=== PATIENT | male | born 2000 ===

== ENCOUNTER 2024-04-23 14:19 | Inpatient (IN) | payer BC, SELFPAY ==
--- OUTSIDE RECORDS SUMMARY | 2024-04-23 14:46 | XMS_ITS | Clinical Summary ---
Author Organization Luz Carrasco [facility] Address [address] [place] [address] Care Team Providers Care Dry Cleaning Machine Operator Helper Name Role Phone Unavailable Primary Care Provider Unavailabl e Allergies Active Allergy Reactions Criticality Noted Date Comments Amoxicillin GI Intolerance Encounters Date Type Department Care Team Description 04/22/2024 Lab Requisition [facility] Get Cho MD Encounter for screening, unspecified from Last 3 Months Immunizations Name Administration Dates Next Due Meningococcal Quadrivalent Vaccine (MENACTRA) Social History Tobacco Use Types Packs/Day Years Used Date Smoking Tobacco: Never Assessed Sex and Gender Information Value Date Recorded Sex Assigned at Not on file Legal Sex Male 7:35 PM EST Gender Identity Not on file Sexual Orientation Not on file Last Filed Vital Signs Vital Sign Reading Time Taken Comments Blood Pressure - - Pulse - - Temperature - - Respiratory Rate - - Oxygen Saturation - - Inhaled Oxygen Concentration - - Weight 159 kg (350 lb 11.7 oz) 11/27/2020 9:12 A M EDT Height 172.7 cm (5' 8 ) 11/27/2020 9:12 AM EDT Body Mass Index 53.33 11/27/2020 9:12 AM EDT Plan of Treatment Health Maintenance Due Date Last Done Comments Blood Pressure 2000 Depression Screening 2004 Hepatitis C Screening 02/12/2018 COVID-19 Vaccine (1 - 2023-2 5 season) 2023 Influenza Vaccine (#1) 2023 DTaP,Tdap,and Td Vaccines (2 - Td or Tdap) 06/11/2032 06/11/2022 Meningococcal Vaccines Completed 09/18/2016 Pneumococcal Vaccine: Pediat rics (0 to 5 Years) and At-Risk Patients (6 to 64 Years) Aged Out No longer eligi ble based on patient's age to complete this topic
--- OUTSIDE RECORDS SUMMARY | 2024-04-23 14:46 | XMS_ITS | Encounter Summary ---
Author Organization Luz Carrasco [facility] Address [address] [place] [address] Care Team Providers Care Microfilm Machine Operator Name Role Phone Unavailable Primary Care Provider Unavailabl e Encounter Details Date Type Department Care Team (Late st Contact Info) Description 04/22/2024 Lab Requisition [facility] Get Cho MD [address] [place] [address] Encounter for screening, unspecified Social History Tobacco Use Types Packs/Day Years Used Date Smoking Tobacco: Never Assessed Sex and Gender Information Value Date Recorded Sex Assigned at Not on file Legal Sex Male 7:35 PM EST Gender Identity Not on file Sexual Orientation Not on file documented as of this encounter Plan of Treatment Pending Results Name Type Priority Associated Diagnoses Date /Time Culture, Aerobic, Urine Microbiology STAT Encounter for screening, unspecified 04/22/2024 9:26 AM EST documented as of this encounter Visit Diagnoses Diagnosis Encounter for screening, unspecified documented in this encounter
--- OUTSIDE RECORDS SUMMARY | 2024-04-23 14:46 | XMS_ITS | Encounter Summary ---
Author Organization Luz Carrasco [facility] Address [address] [id number] Care Team Providers Care Swaging Machine Adjuster Name Role Phone Unavailable Primary Care Provider Unavailabl e Encounter Details Date Type Department Care Team (Late st Contact Info) Description 06/30/2023 Lab Requisition [facility] Orders Jose Alejandro Lea MD [address] [place] [address] Encounter for screening, unspecified Social History Tobacco Use Types Packs/Day Years Used Date Smoking Tobacco: Never Assessed Sex and Gender Information Value Date Recorded Sex Assigned at Not on file Legal Sex Male 7:35 PM EST Gender Identity Not on file Sexual Orientation Not on file documented as of this encounter Plan of Treatment Not on file documented as of this encounter Procedures Procedure Name Priority Date/Time Associated Diagnosis Comments HEMOGLOBIN A1C Routine 06/30/2023 11:03 AM EDT Encounter for screening, unspecified HEPATITIS B CORE ANTIBODIES (IGG, IGM) Routine 06/30/2023 11:02 AM EDT Encounter for screening, unspecified TREPONEMA PALLIDUM (SYPHILIS) ANTIBODY, IGG & IGM, REFLEX TO RPR Routine 06/30/2023 11:02 AM EDT Encounter for screening, unspecified HEPATITIS B SURFACE ANTIBODY Routine 06/30/2023 11:02 AM EDT Encounter for screening, unspecified HEPATITIS B SURFACE ANTIGEN Routine 06/30/2023 11:02 AM EDT Encounter for screening, unspecified LIPID PANEL Routine 06/30/2023 11:02 AM EDT Encounter for screening, unspecified BASIC METABOLIC PANEL Routine 06/30/2023 11:02 AM EDT Encounter for screening, unspecified documented in this encounter Results * (ABNORMAL) Hemoglobin A1C (06/30/2023 11:03 AM EDT) Hemoglobin A1C <4.1(L) 4.6 - 5.6 % 06/30/2023 7:44 PM EDT [facility] Comment: 4.6 to 5.6% ?Normal 5.7 to 6.4% ?Pre-diabetes, increased risk for diabetes >= 6.5% ?Diabetes mellitus Estimated Average Glucose <71 mg/dL 06/30/2023 7:44 PM EDT [facility] Blood PERIPHERAL NERVOUS SYSTEM STRUCTURE / Unknown 06/30/2023 11:03 AM EDT 06/30/2023 2:12 PM EDT us Jose Alejandro Lea MD LAB BLOOD ORDERABLES Final Re sult Performing Organization Address [facility]/ZIP Co de Phone Number [facility] [address] [place] [address], [place] [phone] * Treponema Pallidum (Syphilis) Antibody, IgG & IgM, Reflex RPR (06/30/2023 11:02 AM EDT) Treponema pallidum Antibody Non-Reacti ve Non-Reacti ve 06/30/2023 3:38 PM EDT [facility] Blood PERIPHERAL NERVOUS SYSTEM STRUCTURE / Unknown 06/30/2023 11:02 AM EDT 06/30/2023 2:12 PM EDT us Jose Alejandro Lea MD LAB BLOOD ORDERABLES Final Re sult Performing Organization Address City/[facility]/ZIP Co de Phone Number [facility] [address] [place] [address], [place] [phone] * (ABNORMAL) Lipid Panel (06/30/2023 11:02 AM EDT) [facility] Signature Cholesterol 122 <200 mg/dL [address] 06/30/2023 3:38 PM EDT [facility] Triglycerides 49 <150 mg/dL [address] 06/30/2023 3:38 PM EDT [facility] HDL Cholesterol 37(L) >40 mg/dL [address] 06/30/2023 3:38 PM EDT [facility] LDL Cholesterol 75 <130 mg/dL [address] 06/30/2023 3:38 PM EDT [facility] Comment: ?LDL-C Treatment Targets ? LDL-C mg/dL ?? High Risk (20%) ? <100 optional for very high risk ?? (optional <70) ? Mod Risk (2 high factors <20%) ??<130 optional for very high risk ?? (optional <100) ?? Low Risk (0-1 Risk factor) ?<160 Non-HDL Cholesterol 85 <160 mg/dL [address] 06/30/2023 3:38 PM EDT [facility] Comment: ? NON-HDL-c Treatment Targets ?Non-HDL C, mg/dL ? High Risk (20%) ?<130 ??Optional for very high risk (optional <100) ? Mod Risk (2 high factors <20%) ??<160 ??Optional for very high risk (optional <130) ? Low Risk (0-1 Risk Factor) ?<190 ?? NON-HDL Chol= Total Cholesterol-HDL Chol ??goal <160 VLDL Cholesterol 10 8 - 71 mg/dL [address] 06/30/2023 3:38 PM EDT [facility] Ratio Chol/HDL 3.3 0.0 - 5.[address] 06/30/2023 3:38 PM EDT [facility] Comment: ?Risk Ratio Estimate ? 1/2 ?? Avg. ?2X ? 3X ? Male ?3.4 ?5.0 ?9.6 ?23.4 Female ?3.4 ?4.4 ?7.1 ?11.0 Blood PERIPHERAL NERVOUS SYSTEM STRUCTURE / Unknown 06/30/2023 11:02 AM EDT 06/30/2023 2:12 PM EDT Jose Alejandro Lea MD LAB BLOOD ORDERABLES Final Re sult Performing Organization Address [facility] de Phone Number [facility] [address] [place] [address], * Hepatitis B Surface Antigen (06/30/2023 11:02 AM EDT) Hep B Valentin Ag Negative Negative 06/30/2023 3:38 PM EDT [facility] Blood PERIPHERAL NERVOUS SYSTEM STRUCTURE / Unknown 06/30/2023 11:02 AM EDT 06/30/2023 2:12 PM EDT Jose Alejandro Lea MD LAB BLOOD ORDERABLES Final Re sult Performing Organization Address [facility] de Phone Number [facility] [address] [place] [address], [place] [phone] * Hepatitis B Surface Antibody (06/30/2023 11:02 AM EDT) Hepatitis B Surface Antibody, Screen Negative Negative 06/30/2023 3:38 PM EDT [facility] Blood PERIPHERAL NERVOUS SYSTEM STRUCTURE / Unknown 06/30/2023 11:02 AM EDT 06/30/2023 2:12 PM EDT us Jose Alejandro Lea MD LAB BLOOD ORDERABLES Final Re sult Performing Organization Address City/[facility]/ZIP Co de Phone Number [facility] [address] [place] [address], [place] [phone] * Hepatitis B Core Antibodies (IgG, IgM) (06/30/2023 11:02 AM EDT) Hepatitis B Core Antibodies (IgG, IgM) Negative Negative 06/30/2023 3:38 PM EDT [facility] Blood PERIPHERAL NERVOUS SYSTEM STRUCTURE / Unknown 06/30/2023 11:02 AM EDT 06/30/2023 2:12 PM EDT us Jose Alejandro Lea MD LAB BLOOD ORDERABLES Final Re sult Performing Organization Address [facility] de Phone Number [facility] [address] [place] [address], [place] [phone] * Basic Metabolic Panel (06/30/2023 11:02 AM EDT) Pathologist [facility] Sodium 141 134 - 144 mmol/L [address] 06/30/2023 3:38 PM EDT [facility] Potassium 4.7 3.2 - 5.1 mmol/L [address] 06/30/2023 3:38 PM EDT [facility] Comment:Samples tested in se rum may exhibit a higher potassium value than those tested on plasma. Our current range is based on plasma testing. Chloride 107 97 - 109 mmol/L [address] 06/30/2023 3:38 PM EDT [facility] Total CO2/Bicarbonat e 25 20 - 32 mmol/L [facility] [address] 06/30/2023 3:38 PM EDT [facility] Anion Gap 9 5 - 15 mmol/L [address] 06/30/2023 3:38 PM EDT [facility] BUN 14 9 - 26 mg/dL [facility] [id number] 06/30/2023 3:38 PM EDT [facility] Creatinine, Blood 0.80 0.70 - 1.30 mg/dL [address] 06/30/2023 3:38 PM EDT [facility] Glucose, Blood 88 70 - 110 mg/dL [facility] [id number] 06/30/2023 3:38 PM EDT [facility] Calcium 9.3 8.5 - 10.5 mg/dL [facility] [id number] 06/30/2023 3:38 PM EDT [facility] Estimated GFR(CKD-EPI) >120 >=60 mL/min/BSA [facility] [id number] 06/30/2023 3:38 PM EDT [facility] Blood PERIPHERAL NERVOUS SYSTEM STRUCTURE / Unknown 06/30/2023 11:02 AM EDT 06/30/2023 2:12 PM EDT Jose Alejandro Lea MD LAB BLOOD ORDERABLES Final Re sult [facility] [address] [place] [address], documented in this encounter Visit Diagnoses Diagnosis Encounter for screening, unspecified documented in this encounter
--- OUTSIDE RECORDS SUMMARY | 2024-04-23 14:46 | XMS_ITS | Encounter Summary ---
Author Organization Luz Carrasco [facility] Address [address] [place] [address] Care Team Providers Care Metal Flow Coordinator Name Role Phone Unavailable Primary Care Provider Unavailabl e Encounter Details Date Type Department Care Team (Late st Contact Info) Description 02/28/2021 Lab [facility] Orders Jose Alejandro Lea MD [address] [place] [address] Acute upper respiratory infection, unspecified Social History Tobacco Use Types Packs/Day [...] Procedure Name Priority Date/Time Associated Diagnosis Comments CORONAVIRUS SARS-COV-2, MOLECULAR Routine 02/28/2021 4:48 PM EST Acute upper respiratory infection, unspecified documented in this encounter Results * (ABNORMAL) Coronavirus SARS-CoV-2, Molecular (02/28/2021 4:48 PM EST) Coronavirus SARS-CoV-2 Detected (AA) Not Detected ID Quantique [id number] 03/01/2021 1:50 PM EST [facility] Comment: A Detected result is considered a positive test result for COVID-19. This indicates that RNA from SARS-CoV-2 (formerly 2019-nCoV) was detected, and the patient is infected with the virus and presumed to be contagious. If requested by public health authority, specimen will be sent for additional testing. Test performed at: ?? [facility] ?? Department of Pathology and Laboratory Medicine ?? [address] [place] [address] ?? CLIA: [id number] Test performed using the [employer] COVID-19 Combo Amplitude high throughput real-time RT-PCR assay. This test has received Emergency Use Authorization approval from the U.S. FDA, and its performance characteristics have been verified by the Molecular Diagn[facility] Laboratory at [employer]. ??Laboratory test results should always be considered in the context of clinical observations and epidemiological data in making a final diagnosis and patient management decisions. Fact Sheet for Healthcare Providers: https://www.fda.gov/media/429455/download Fact Sheet for Patients: https://www.fda.gov/media/877378/download xOther NASOPHARYNGEAL SWAB / Unknown Collection / Unknown 02/28/2021 4:48 PM EST 03/01/2021 9:06 AM EST Jose Alejandro Lea MD BODY FLUIDS AND STOOLS ORDERA ARDEN Final Result Performing Organization Address City/State/[facility] Co de Phone Number [address] [place] [phone] documented in this encounter Visit Diagnoses Diagnosis Acute upper respiratory infection, unspecified documented in this encounter Additional Health Concerns Infection Onset Date Last Indicated Resolved Time COVID Suspect 02/28/2021 02/28/2021 03/01/2021 1:5 0 PM EST COVID Positive 02/28/2021 02/28/2021 03/30/2021 12 :25 AM EST documented as of this encounter
--- OUTSIDE RECORDS SUMMARY | 2024-04-23 14:46 | XMS_ITS | Clinical Summary ---
Author Organization [facility] Address [address] [place] [address] Care Team Providers Care Bracelet Maker Novelty Name Role Phone Rachel Owen MD Primary Care Provider [phone] Social History Tobacco Use Types Packs/Day Years Used Date Smoking Tobacco: Never Assessed Sex and Gender Information Value Date Recorded Sex Assigned at Not on file Legal Sex Male 10:49 PM EDT Gender Identity Not on file Sexual Orientation Not on file Plan of Treatment Not on file Insurance BCBS - OUT OF STATE Care Teams Bracelet Maker Novelty Relationship Specialty Start Date End Date Rachel Owen MD [facility] [address] [place] [phone] PCP - General 01/15/10
[2024-04-23 15:00] VITALS: BP 146/80; PULSE 88; RESP 16; TEMP 36.7; O2SAT 98
[2024-04-23 15:17] VITALS: BMI 56.7
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
--- NOTE | 2024-04-23 17:51 | P.CONHOSP_ITS ---
History of Present Illness Data of Consult Service Date: 04/23/24 Requesting physician: Teddy Hdez Primary Care Provider: Unknown Physician HPI Reason for consult: new psych admit HPI: 24-year-old male who was sent [facility] ED - for treatment of mood disorder. Patient seen and examined denies any past medical issues. Patient says he has some intermittent soft stools as well as constipation for many years, denies any abdominal pain or nausea vomiting or fever. He also had some frequency urinary washburn but that is also from years and he follows up with his PCP. He says he drinks alcohol last drink was 7 days ago, also he uses edible marijuana. Denies any new complaint of chest pain or shortness of breath or abdominal pain or fever or chills or nausea or vomiting Denies any cough Denies any weakness or numbness. Review of Systems Review of Systems: As above. Yes all other systems are reviewed and are negative PMFSH Social History Household Members: Family Housing: House Do you presently have visiting nurse or other home services: No Patient Tobacco Use Status: Never used Tobacco Use of substances other than those prescribed or required for medical reasons: Yes Substance Use Type: Marijuana Substance Use Type Other:: edibles Substance Use Frequency: Daily Last Used Substance: Just Prior to Admission Currently Displaying Signs/Symptoms of Drug Intoxication Withdrawal: No Any prior treatment program specific to substance use: No Have you been hit, kicked, punched, or otherwise hurt by someone within the past year? If so, by whom?: No Do you feel safe in your current relationship?: No Current Relationship Is there a partner from a previous relationship who is making you feel unsafe now?: No Are you made to feel afraid or neglected: No Advance Directives: No Advance Directives Information Provided: Yes Do you have a plan to hurt others: No Plan Recently lost weight without trying: Yes How much weight loss: 34pounds or more Eating poorly because of decreased appetite: Yes Nutrition screen score: 7 Nutrition Risks: No Nutritional Risk Poor oral hygiene: No Meds Allergies Allergy/AdvReac Type Severity Reaction Status Date / Time Penicillins Allergy Nausea and Verified 04/23/24 15:18 Vomiting Active Medications: Current Medications Acetaminophen (Acetaminophen 325 Mg Tablet) 650 mg PO Q6H PRN PRN Reason: Headache/Pain, Scale 1-10 Al Hydroxide/Mg Hydroxide (Magnesium Hydrox/Alum Hydrox 30 Ml Oral.Susp) 30 ml PO Q6H PRN PRN Reason: Heartburn/Nausea Hydroxyzine HCl (Hydroxyzine Hcl 25 Mg Tablet) 25 mg PO Q6H PRN PRN Reason: mild anxiety Magnesium Hydroxide (Milk Of Magnesia 30 Ml Oral.Susp) 30 ml PO DAILY PRN PRN Reason: Constipation Nicotine Polacrilex (Nicotine Polacrilex 2 Mg Gum) 4 mg BUCCAL Q2H PRN PRN Reason: Nicotine Cravings Trazodone HCl (Trazodone Hcl 50 Mg Tablet) 50 mg PO BEDTIME MRX1 PRN PRN Reason: Insomnia Home Medications ?Medication ?Instructions ?Recorded ?Confirmed ?Last Taken ?Type No Known Home Meds 04/23/24 04/23/24 Unknown History Physical Exam Vital Signs and Narrative: Vital Signs: Last Vital Signs Temp 98.0 F 04/23/24 15:00 Pulse 88 04/23/24 15:00 Resp 16 04/23/24 15:00 BP 146/80 H 04/23/24 15:00 Pulse Ox 98 04/23/24 15:00 O2 Del Method Room Air 04/23/24 15:00 BMI result Body Mass Index 56.7 Appearance: Alert.? Oriented X3.? Obese. Eyes: Pupils equal, round and reactive to light.? Sclera nonicteric.? ENT: Pharynx normal.? Moist mucous membranes. cvs: rrr, [id number] , no murmur res: clear to auscultation ,no rhonchii or wheezing abd: no rebound or guarding ,nt, bs present. ext pulses present , no cyanosis . neuro: axo3 , nonfocal. Assessment and Plan (1) Loose stools: Status: Acute Plan 24-year-old male who was sent [facility] ED - for treatment of mood disorder. Mood disorder treatment as per psych team Intermittent constipation/soft stool , urinary frequency intermittent from many years-patient follows up with his PCP. Further management outpatient with PCP. Patient was strongly advised to abstain from alcohol. Morbid obesity: Patient is saying that he is already trying to lose weight, encouraged him for that. Will sign off, thank you for letting us participate inpatient care.
[2024-04-23 19:23] LABS: Alanine Aminotransferase 46 U/L (0-40); Albumin Level 4.6 g/dL (3.5-5.0); Alkaline Phosphatase 101 U/L (39-117); Anion Gap 13 (12-20); Aspartate Amino Transferase 34 U/L (5-37); Bilirubin Total 0.5 mg/dL (0.0-1.0); Blood Urea Nitrogen 15 mg/dL (9-16); Calcium 9.8 mg/dL (8.4-10.2); Carbon Dioxide 24 mmol/L (22-29); Chloride 109 mmol/L (96-108); Creatinine Clr Calc Pharmacy 206.9; Estimated Glomerular Filt Rate > 60; Glucose Random 85 mg/dL (60-115); Potassium 4.2 mmol/L (3.3-5.1); Sodium 142 mmol/L (135-145); Total Protein 7.8 g/dL (6.5-8.0)
[2024-04-23 20:00] VITALS: BP 142/70; PULSE 60; RESP 18; TEMP 36.3; O2SAT 99
[2024-04-23] MEDS: hydrOXYzine HCL 25 MG TABLET PO (22:39)
[2024-04-23] MEDS: traZODone HCL 50 MG TABLET PO (22:39)
[2024-04-24 07:30] VITALS: BP 130/74; PULSE 53; RESP 16; TEMP 36.4; O2SAT 98
[2024-04-24 08:56] LABS: Cholesterol 136 mg/dL (<200); HDL Cholesterol 41 mg/dL (>40); LDL Cholesterol Calculated 81 mg/dL (<100); Triglycerides 73 mg/dL (<150)
--- NOTE | 2024-04-24 10:39 | HO.PSYCHPN ---
Subjective Subjective Date of Service: 04/24/24 Reason For Visit: Crisis Review of Systems Review of Systems As above. Yes all other systems are reviewed and are negative Diagnostics Vital Signs (24Hr): Vital Signs - 24 hr 04/23/24 15:00 04/23/24 20:00 04/24/24 07:30 Temperature 98.0 F 97.3 F 97.6 F Pulse Rate 88 60 53 Respiratory Rate 16 18 16 Blood Pressure 146/80 H 142/70 H 130/74 Pulse Oximetry 98 99 98 Oxygen Delivery Method Room Air Room Air Room Air BMI result Body Mass Index 56.7 Labs 04/23/24 18:42 Labs: Laboratory Results - last 48 hr 04/23/24 04/24/24 18:42 07:53 Sodium 142 Potassium 4.2 Chloride 109 H Carbon Dioxide 24 Anion Gap 13 BUN 15 Creatinine 0.82 Estim Creat Clear Calc 206.9 Estimated GFR > 60 Random Glucose 85 Calcium 9.8 Total Bilirubin 0.5 AST 34 ALT 46 H Alkaline Phosphatase 101 Total Protein 7.8 Albumin 4.6 Triglycerides 73 Cholesterol 136 LDL Cholesterol, Calc 81 HDL Cholesterol 41 Medications Medications Current Medications Acetaminophen (Acetaminophen 325 Mg Tablet) 650 mg PO Q6H PRN PRN Reason: Headache/Pain, Scale 1-10 Al Hydroxide/Mg Hydroxide (Magnesium Hydrox/Alum Hydrox 30 Ml Oral.Susp) 30 ml PO Q6H PRN PRN Reason: Heartburn/Nausea Hydroxyzine HCl (Hydroxyzine Hcl 25 Mg Tablet) 25 mg PO Q6H PRN PRN Reason: mild anxiety Last Admin: 04/23/24 22:39 Dose: 25 mg Magnesium Hydroxide (Milk Of Magnesia 30 Ml Oral.Susp) 30 ml PO DAILY PRN PRN Reason: Constipation Nicotine Polacrilex (Nicotine Polacrilex 2 Mg Gum) 4 mg BUCCAL Q2H PRN PRN Reason: Nicotine Cravings Trazodone HCl (Trazodone Hcl 50 Mg Tablet) 50 mg PO BEDTIME MRX1 PRN PRN Reason: Insomnia Last Admin: 04/23/24 22:39 Dose: 50 mg Allergies Allergies Allergy/AdvReac Type Severity Reaction Status Date / Time Penicillins Allergy Nausea and Verified 04/23/24 15:18 Vomiting Assessment & Plan Assessment & Plan (1) Loose stools: Status: Acute Code(s): R19.5 - Other fecal abnormalities Plan 24[facility]. Mood disorder treatment as per psych team Intermittent constipation/soft stool , urinary frequency intermittent from many years-patient follows up with his PCP. Further management outpatient with PCP. Patient was strongly advised to abstain from alcohol. Morbid obesity: Patient is saying that he is already trying to lose weight, encouraged him for that. Will sign off, thank you for letting us participate inpatient care. Time Spent With Patient Time: Total time managing care of this patient today ____ minutes.
--- NOTE | 2024-04-24 10:39 | HO.PSYADMNOT ---
HPI Date of Service: 04/24/24 Chief Complaint: Crisis Sources of Information: patient interviewed, chart reviewed and crisis/core team assessment reviewed HPI Narrative: 24 yo young man, lives in [facility]. He lives with his parents and brother. He works at a restaurant. Patient with a reported diagnosis of ASD/Asperger's disorder. He was transferred from [facility] in [place] due to SI. Patient reports he has been increasingly depressed over the last 8 or so months after the break up with his ex-girlfriend. He reports a 2.5 year relationship with her. She lived in [place] and their relationship was remote. Patient reports increased depression and increased alcohol use. He reports drinking 5-6 nips everyday (BAL at [facility] <10) and using edibles because of decreased appetite. He reports a weight loss of 40 lbs (Patient reports being around 400 lbs ad now being 360 lbs). Decreased motivation. 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 Helplessness and hopelessness. He reports he sent a message to a friend saying grazynae and the friend alerted the police who came to his house. He was considering OD on Ibuprofen. He told his mother and he says he was challenging her to stop him if she could (mom's mobility is limited due to her illness.) In addition to the break up patient reports stressors including his mother having Lupus, being on dialysis and having cancer. He says they were told she has 3 months to live several months ago. He has a strained relationship with his father. He also uses excessive amounts of edible MJ to help his anxiety and to help his appetite. He denies withdrawals from ETOH Denies SI now. Denies panic Denies hallucinations. Past Psychiatric History: Inpatient hospitalization age 10 in 4th grade. Evasive about details. Medical Evaluation Reviewed: Yes [facility] Family History: Says his father may be depressed. (mentioned to crisis team in [place] father may have bipolar) Social History: Lives with his family in [place]. 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 Single. No children. Grew up in [place]. Attended a special education middle and high school program due to learning difficulties. Substance History: Alcohol and MJ Diagnostics Vital Signs (24Hr): Vital Signs - 24 hr 04/23/24 15:00 04/23/24 20:00 04/24/24 07:30 Temperature 98.0 F 97.3 F 97.6 F Pulse Rate 88 60 53 Respiratory Rate 16 18 16 Blood Pressure 146/80 H 142/70 H 130/74 Pulse Oximetry 98 99 98 Oxygen Delivery Method Room Air Room Air Room Air BMI result Body Mass Index 56.7 Labs 04/23/24 18:42 Labs: Laboratory Results - last 48 hr 04/23/24 04/24/24 18:42 07:53 Sodium 142 Potassium 4.2 Chloride 109 H Carbon Dioxide 24 Anion Gap 13 BUN 15 Creatinine 0.82 Estim Creat Clear Calc 206.9 Estimated GFR > 60 Random Glucose 85 Calcium 9.8 Total Bilirubin 0.5 AST 34 ALT 46 H Alkaline Phosphatase 101 Total Protein 7.8 Albumin 4.6 Triglycerides 73 Cholesterol 136 LDL Cholesterol, Calc 81 HDL Cholesterol 41 Meds/Allergies Meds Home Medications ?Medication ?Instructions ?Recorded ?Confirmed ?Type No Known Home Meds 04/23/24 04/23/24 History Allergies Allergies Allergy/AdvReac Type Severity Reaction Status Date / Time Penicillins Allergy Nausea and Verified 04/23/24 15:18 Vomiting Mental Status Exam Mental Status Exam Narrative: General appearance: casually appropriate dress. Obese Unkept.? Eye contact: WNL. Musculoskeletal: Normal muscle strength/tone, Normal gait and station, No abnormal involuntary movements like tremors, EPS or dyskinesia. No psychomotor agitation or retardation. Normal posture.??? Manner/behavior: Somewhat evasive Speech:? Fluent, with normal rate, tone and volume. Language: No receptive or expressive language impairment? Mood: depressed Affect: constricted range, sometimes incongruent and jocular.? Thought process/associations: Linear with no flight of ideas or loose associations.?? Thought content:?No delusions or paranoia.?? Hallucinations: No auditory, visual or other hallucinations No?flashbacks, nightmares or dissociation? ? Suicidality/self-destructive behavior: none at this time, future oriented, hopeful.? ? Homicidally/violence: none.? Reliability: fair.? ? Judgment: fair.? ? Insight: fair Cognition: Alert and oriented to time, place and person. Attention, concentration and fund of knowledge are normal.? Impulse control and emotional regulation: preserved. Intelligence estimate: average.? Assessment & Plan Assessment & Plan (1) Depressive disorder, not elsewhere classified: Status: Acute Code(s): F32.89 - Other specified depressive episodes (2) Asperger disorder: Status: Acute Code(s): F84.5 - Asperger's syndrome (3) Alcohol use disorder: Status: Acute Code(s): F10.90 - Alcohol use, unspecified, uncomplicated (4) Cannabis use disorder: Status: Acute Code(s): F12.90 - Cannabis use, unspecified, uncomplicated Plan 24 yo male transferred from [facility] with increased depression and SI with thoughts of ODing on medications. PLAN: - Admit to inpatient psychiatry - CV - Collateral information from family and providers. - Milieu treatment and group therapy. - Medications: Start Lexapro 10 mg daily. - Social work evaluation. - Disposition planning. Patient educated on: diagnosis and medication risk/benefits Reason for continued inpatient stay Substantial Risk for: harm to self and rapid decompensation Statement Statement: I have reviewed the history and physical and performed a pertinent examination on my patient. No changes have occurred unless specified. If the History and Physical was not performed prior to admission, the Hospitalist's service will be consulted for completing the admission physical. Time Spent With Patient Time: Total time managing care of this patient today ____ minutes.
--- NOTE | 2024-04-24 16:15 | PC.NURSE ---
Addendum entered by France Estrada RN 04/24/24 16:35: Dr. Romero notified. EKG ordered, Ativan 2 mg ordered. Placed on CIWA. Patient vomited x1, reports diarrhea persists, c/o stomach discomfort. Fire Engine Pump Operator notified of EKG order. Patient in room, resting in bed. Original Note: Patient reporting feeling lightheaded and nauseated. Sat on floor in hallway stating I have never felt like this before . BP 113/79 HR 95. Diaphoretic. Reports tingling in both hands.
--- NOTE | 2024-04-24 16:24 | ECG_ITS ---
Test Reason : chest pressure Blood Pressure : */* mmHG Vent. Rate : 85 BPM Atrial Rate : 85 BPM P-R Int : 152 ms QRS Dur : 84 ms QT Int : 354 ms P-R-T Axes : 49 -12 25 degrees QTcB Int : 421 ms Normal sinus rhythm Minimal voltage criteria for LVH, may be normal variant ( R in aVL ) Borderline ECG No previous ECGs available Referred By: Yasmany Romero Electronically Signed By: ETTA ROSARIO
[2024-04-24] MEDS: Ondansetron ODT 4 MG TAB.RAPDIS TRANSLINGU (16:45)
[2024-04-24] MEDS: LORazepam 1 MG TABLET 2 MG PO (16:45)
[2024-04-24 20:00] VITALS: BP 136/87; PULSE 106; RESP 16; TEMP 38.7; O2SAT 94
[2024-04-24] MEDS: Acetaminophen 325 MG TABLET 650 MG PO (20:11)
[2024-04-24] MEDS: LORazepam 1 MG TABLET PO (20:11)
[2024-04-24 21:20] VITALS: TEMP 39.2
--- NOTE | 2024-04-24 21:37 | PC.NURSE ---
Jaci Campo informed of patient physical status.
[2024-04-24 22:02] VITALS: TEMP 37.4
[2024-04-24] MEDS: Loperamide HCl 2 MG CAPSULE PO (22:08)
[2024-04-24 22:28] LABS: Hematocrit 46.2 % (42.0-52.0); Mean Corpuscular HGB Conc 32.5 g/dl (31.0-36.0); Mean Corpuscular Hemoglobin 27.2 pg (27.0-33.0); Mean Corpuscular Volume 83.7 fL (80.0-98.0); Mean Platelet Volume 9.9 fL (9.4-12.4); Platelet Count 223 X10*3/uL (160-400); Red Blood Count 5.52 X10*6/uL (4.60-5.80); Red Cell Distribution Width 12.1 % (11.0-16.0); White Blood Count 11.7 X10*3/uL (4.8-10.8)
--- NOTE | 2024-04-24 22:31 | P.CONHOSP_ITS ---
History of Present Illness Data of Consult Service Date: 04/24/24 Requesting physician: Teddy Hdez Primary Care Provider: Unknown Physician HPI Reason for consult: fever, diarrhea, vomiting Patient is a 24-year-old male on adult psych M3, consult placed for fever, diarrhea, nausea and vomiting. His symptoms all began today. He reports his diarrhea significantly worse than baseline and denies any recent antibiotics. There is no blood in the vomit or diarrhea. The diarrhea is watery and brown. Nausea is better with Zofran. He describes generalized abdominal cramping and tenderness. He denies any upper respiratory symptoms including congestion, runny nose, cough or headache. He does have a history of alcohol use and reports that he was drinking a few nips daily and has not had anything to drink for 1 week. He denies any history of alcohol withdrawal or seizures. Fever was up to 102.5, now 99.3 after Tylenol. CIWA scores have been up to 10 however can be difficult with viral illness as symptoms may coincide. Review of Systems 2 Constitutional: Constitutional: Denies body ache(s), Reports chills, Reports fatigue, Reports fever(s) and Denies headache(s) Eyes: Eyes: Denies change in vision and Denies photophobia ENT: Denies headache(s), Denies nasal congestion, Denies nasal discharge and Denies sore throat Cardiovascular: Cardiovascular: Denies chest pain, Denies rapid heart rate, Denies leg edema, Denies lightheadedness and Denies dyspnea Respiratory: Respiratory: Denies chest congestion, Denies cough, Denies dyspnea and Denies wheezing Gastrointestinal: Gastrointestinal: Reports abdominal pain, Denies hematochezia, Denies coffee ground emesis, Reports GI cramping, Reports diarrhea, Reports nausea, Reports vomiting and Denies hematemesis Genitourinary: Genitourinary: Denies hematuria, Denies difficulty urinating and Denies urinary frequency Musculoskeletal: Musculoskeletal: Denies myalgias Integumentary/Breasts: Skin/Breast: Denies rash Neurologic: Denies confusion and Denies headache(s) Psychiatric: Psychiatric: Denies confusion, Denies visual hallucinations, Denies hallucinations and Denies tactile hallucinations Endocrine: Endocrine: Reports fatigue Hematologic/Lymphatic: Hematologic/Lymphatic: Denies easy bleeding and Denies easy bruising Allergic/Immunologic: Allergic/Immunologic: Denies wheezing PMFSH Functional capacity: independent ambulation Social History Household Members: Family Housing: House Do you presently have visiting nurse or other home services: No Patient Tobacco Use Status: Never used Tobacco Use of substances other than those prescribed or required for medical reasons: Yes Substance Use Type: Marijuana Substance Use Type Other:: edibles Substance Use Frequency: Daily Last Used Substance: Just Prior to Admission Currently Displaying Signs/Symptoms of Drug Intoxication Withdrawal: No Any prior treatment program specific to substance use: No Have you been hit, kicked, punched, or otherwise hurt by someone within the past year? If so, by whom?: No Do you feel safe in your current relationship?: No Current Relationship Is there a partner from a previous relationship who is making you feel unsafe now?: No Are you made to feel afraid or neglected: No Advance Directives: No Advance Directives Information Provided: Yes Do you have thoughts of harming others: None Do you have a plan to hurt others: No Plan Recently lost weight without trying: Yes How much weight loss: 34pounds or more Eating poorly because of decreased appetite: Yes Nutrition screen score: 7 Nutrition Risks: No Nutritional Risk Poor oral hygiene: No Narrative: drinks about 8 nips/day, none in the past week Meds Allergies Allergy/AdvReac Type Severity Reaction Status Date / Time Penicillins Allergy Nausea and Verified 04/23/24 15:18 Vomiting Active Medications: Current Medications Acetaminophen (Acetaminophen 325 Mg Tablet) 650 mg PO Q6H PRN PRN Reason: Headache/Pain, Scale 1-10 Last Admin: 04/24/24 20:11 Dose: 650 mg Al Hydroxide/Mg Hydroxide (Magnesium Hydrox/Alum Hydrox 30 Ml Oral.Susp) 30 ml PO Q6H PRN PRN Reason: Heartburn/Nausea Hydroxyzine HCl (Hydroxyzine Hcl 25 Mg Tablet) 25 mg PO Q6H PRN PRN Reason: mild anxiety Last Admin: 04/23/24 22:39 Dose: 25 mg Loperamide HCl (Loperamide Hcl 2 Mg Capsule) 2 mg PO Q4H PRN PRN Reason: Diarrhea Last Admin: 04/24/24 22:08 Dose: 2 mg Lorazepam (Lorazepam 1 Mg Tablet) 1 mg PO Q4H PRN PRN Reason: Breakthrough alcohol withdrawa Stop: 04/28/24 16:54 Last Admin: 04/24/24 20:11 Dose: 1 mg Magnesium Hydroxide (Milk Of Magnesia 30 Ml Oral.Susp) 30 ml PO DAILY PRN PRN Reason: Constipation Nicotine Polacrilex (Nicotine Polacrilex 2 Mg Gum) 4 mg BUCCAL Q2H PRN PRN Reason: Nicotine Cravings Ondansetron HCl (Ondansetron Odt 4 Mg Tab.Rapdis) 4 mg TRANSLINGU Q6H PRN PRN Reason: Nausea and Vomiting Last Admin: 04/24/24 16:45 Dose: 4 mg Trazodone HCl (Trazodone Hcl 100 Mg Tablet) 100 mg PO BEDTIME MRX1 PRN PRN Reason: Insomnia Home Medications ?Medication ?Instructions ?Recorded ?Confirmed ?Last Taken ?Type No Known Home Meds 04/23/24 04/23/24 Unknown History Physical Exam 2 Vital Signs and Narrative: Vital Signs: Last Vital Signs Temp 99.3 F 04/24/24 22:02 Pulse 106 H 04/24/24 20:00 Resp 16 04/24/24 20:00 BP 136/87 04/24/24 20:00 Pulse Ox 94 04/24/24 20:00 O2 Del Method Room Air 04/24/24 20:00 BMI result Body Mass Index 56.7 General: AOx3, no acute distress, obese Resp: CTA bilaterally CVS: S1, S2, RRR GI: +BS, generalized tenderness, no distention Skin: Warm, dry Neuro: Cranial nerves II-XII grossly intact bilaterally. Motor grossly intact bilaterally Extremities: No LE edema Psych: Appropriate affect Const: General: No confusion Orientation/consciousness: No confusion Eyes: Direct Ophthalmoscopy: No photophobia Neuro: General: No confusion Results Labs 04/24/24 22:16 04/23/24 18:42 Labs: Laboratory Results - last 24 hr 04/24/24 04/24/24 07:53 22:16 MCV 83.7 MCH 27.2 MCHC 32.5 RDW 12.1 Plt Count 223 MPV 9.9 Absolute Nucleated RBC 0.000 Nucleated RBC % (auto) 0.0 Triglycerides 73 Cholesterol 136 LDL Cholesterol, Calc 81 HDL Cholesterol 41 Assessment and Plan (1) Diarrhea: Status: Acute (2) Fever: Status: Acute Plan Patient is a 24-year-old male on adult psych M3, consult placed for fever, diarrhea, nausea and vomiting. Appears to be viral illness, etoh unlikely as his last drink was 1 week ago. no hx of etoh withdrawal. diarrhea/fever - fever 102.5, now 99.3 with tylenol - CBC, BMP, COVID/flu/RSV. cdiff and GI panel pending - encourage good hand washing and hydration - limit imodium until stool testing is back - alternate tylenol and ibuprofen for fever - continue to monitor CIWA scores Thank you for allowing me to participate in the pt's care. Will continue to follow until testing is back. Please contact the medical team if any questions or concerns.
[2024-04-24 22:54] LABS: Anion Gap 15 (12-20); Blood Urea Nitrogen 20 mg/dL (9-16); Calcium 9.8 mg/dL (8.4-10.2); Carbon Dioxide 19 mmol/L (22-29); Chloride 107 mmol/L (96-108); Creatinine Clr Calc Pharmacy 204.4; Estimated Glomerular Filt Rate > 60; Glucose Random 118 mg/dL (60-115); Potassium 4.1 mmol/L (3.3-5.1); Sodium 137 mmol/L (135-145)
[2024-04-24 23:02] VITALS: TEMP 37.1
[2024-04-24 23:17] LABS: Influenza A PCR NEGATIVE (Negative); Influenza B PCR NEGATIVE (Negative); Resp Syncy Virus RNA Qual PCR NEGATIVE (Negative); SARS COV2 PCR INHOUSE NEGATIVE (Negative)
[2024-04-24 23:33] LABS: CDiff Gene PCR NEGATIVE (Negative)
[2024-04-25] VITALS (8 sets, daily range): BP systolic 114–144; BP diastolic 60–81; PULSE 93–120; RESP 16–20; TEMP 36.4–37.7; O2SAT 95–98
[2024-04-25] MEDS: hydrOXYzine HCL 25 MG TABLET PO ×2 (00:13→23:19)
[2024-04-25] MEDS: LORazepam 1 MG TABLET PO ×2 (00:13→04:32)
[2024-04-25] MEDS: Ondansetron ODT 4 MG TAB.RAPDIS TRANSLINGU (00:41)
[2024-04-25] MEDS: Lactated Ringers 1,000 ML 250 ML IVCONT (01:24)
--- NOTE | 2024-04-25 01:54 | PC.NURSE ---
IV-placed and running as ordered. is in anteroom. denies any feelings of SI or self harm. 5 minute checks for equipment monitoring.
[2024-04-25] MEDS: Acetaminophen 325 MG TABLET 650 MG PO ×3 (04:31→20:36)
[2024-04-25] MEDS: Loperamide HCl 2 MG CAPSULE PO ×2 (04:32→17:22)
--- NOTE | 2024-04-25 05:47 | PC.NURSE ---
IV infusion completed at 0530. hep lock in place.
--- NOTE | 2024-04-25 05:57 | PC.NURSE ---
blood culture, GI panel pending
[2024-04-25 08:03] LABS: Hematocrit 45.1 % (42.0-52.0); Hemoglobin 14.5 g/dl (14.0-18.0); Mean Corpuscular HGB Conc 32.2 g/dl (31.0-36.0); Mean Corpuscular Hemoglobin 26.9 pg (27.0-33.0); Mean Corpuscular Volume 83.5 fL (80.0-98.0); Mean Platelet Volume 10.3 fL (9.4-12.4); Platelet Count 231 X10*3/uL (160-400); Red Cell Distribution Width 12.2 % (11.0-16.0)
[2024-04-25 08:17] LABS: Anion Gap 15 (12-20); Blood Urea Nitrogen 18 mg/dL (9-16); Calcium 9.3 mg/dL (8.4-10.2); Carbon Dioxide 19 mmol/L (22-29); Chloride 104 mmol/L (96-108); Creatinine Clr Calc Pharmacy 217.5; Estimated Glomerular Filt Rate > 60; Glucose Random 121 mg/dL (60-115); Potassium 3.7 mmol/L (3.3-5.1); Sodium 134 mmol/L (135-145)
[2024-04-25 09:16] LABS: Adenovirus F 40/41 Not Detected (Not Detect.); Astrovirus Not Detected (Not Detect.); Campylobacter Not Detected (Not Detect.); Cryptosporidium Not Detected (Not Detect.); Cyclospora cayetanensis Not Detected (Not Detect.); E. coli EAEC Not Detected (Not Detect.); E. coli EPEC Not Detected (Not Detect.); E. coli ETEC Not Detected (Not Detect.); E. coli STEC Not Detected (Not Detect.); Entamoeba histolytica Not Detected (Not Detect.); Giardia lamblia Not Detected (Not Detect.); Plesiomonas shigelloides Not Detected (Not Detect.); Rotavirus A Not Detected (Not Detect.); Salmonella Not Detected (Not Detect.); Sapovirus Not Detected (Not Detect.); Shigella sp./EIEC Not Detected (Not Detect.); Vibrio Not Detected (Not Detect.); Vibrio Cholerae Not Detected (Not Detect.); Yersinia enterocolitica Not Detected (Not Detect.)
[2024-04-25 09:30] LABS: Norovirus GI/GII Detected (Not Detect.)
--- NOTE | 2024-04-25 10:46 | MHC.RECOVRN ---
Attempted to meet with pt. in 319-2 following consult request received for AUD. Pt in be resting and per staff has neurovirus. Pt awoke to voice but continued to fall asleep during conversation. Will re-attempt assessment at a later date/time. Report to [facility].
--- NOTE | 2024-04-25 11:08 | HO.PSYCHPN ---
Subjective Subjective Date of Service: 04/25/24 Reason For Visit: Crisis Interim History: Last evening had fever, diarrhea, nausea and vomiting. He was seen by hospitalist. Diagnosed with Norovirus by landonnichelle blanco. Received IVF. Now on contact precautions in single room. He is not feeling well physically. Noted to be polite and pleasant by staff throughout the day yesterday. Denies psychiatric symptoms at this time. No SI/AVH. Review of Systems Review of Systems Yes all other systems are reviewed and are negative Constitutional: Denies body ache(s), Reports chills, Reports fatigue, Reports fever(s) and Denies headache(s) Eyes: Denies change in vision and Denies photophobia Denies headache(s), Denies nasal congestion, Denies nasal discharge and Denies sore throat Cardiovascular: Denies chest pain, Denies rapid heart rate, Denies leg edema, Denies lightheadedness and Denies dyspnea Respiratory: Denies chest congestion, Denies cough, Denies dyspnea and Denies wheezing Gastrointestinal: Reports abdominal pain, Denies hematochezia, Denies coffee ground emesis, Reports GI cramping, Reports diarrhea, Reports nausea, Reports vomiting and Denies hematemesis Genitourinary: Denies hematuria, Denies difficulty urinating and Denies urinary frequency Musculoskeletal: Denies myalgias Skin/Breast: Denies rash Denies confusion and Denies headache(s) Psychiatric: Denies confusion, Denies visual hallucinations, Denies hallucinations and Denies tactile hallucinations Endocrine: Reports fatigue Hematologic/Lymphatic: Denies easy bleeding and Denies easy bruising Allergic/Immunologic: Denies wheezing Mental Status Exam Mental Status Exam Narrative: General appearance: casually appropriate dress. Obese Unkept.? Eye contact: WNL. Musculoskeletal: Normal muscle strength/tone, Normal gait and station, No abnormal involuntary movements like tremors, EPS or dyskinesia. No psychomotor agitation or retardation. Normal posture.??? Manner/behavior: Somewhat evasive Speech:? Fluent, with normal rate, tone and volume. Language: No receptive or expressive language impairment? Mood: depressed Affect: constricted range, sometimes incongruent and jocular.? Thought process/associations: Linear with no flight of ideas or loose associations.?? Thought content:?No delusions or paranoia.?? Hallucinations: No auditory, visual or other hallucinations No?flashbacks, nightmares or dissociation? ? Suicidality/self-destructive behavior: none at this time, future oriented, hopeful.? ? Homicidally/violence: none.? Reliability: fair.? ? Judgment: fair.? ? Insight: fair Cognition: Alert and oriented to time, place and person. Attention, concentration and fund of knowledge are normal.? Impulse control and emotional regulation: preserved. Intelligence estimate: average.? Diagnostics Vital Signs (24Hr): Vital Signs - 24 hr 04/24/24 20:00 04/24/24 21:20 04/24/24 22:02 Temperature 101.6 F H 102.5 F H 99.3 F Pulse Rate 106 H Respiratory Rate 16 Blood Pressure 136/87 Pulse Oximetry 94 Oxygen Delivery Method Room Air 04/24/24 23:02 04/25/24 02:12 04/25/24 04:43 Temperature 98.8 F 98.7 F 98.3 F Pulse Rate 102 H Respiratory Rate 16 Blood Pressure 114/60 Pulse Oximetry 97 Oxygen Delivery Method Room Air 04/25/24 07:55 Temperature 98.2 F Pulse Rate 93 Respiratory Rate 16 Blood Pressure 128/71 Pulse Oximetry 95 Oxygen Delivery Method Room Air BMI result Body Mass Index 56.7 Labs 04/25/24 07:38 04/25/24 07:38 Labs: Laboratory Results - last 48 hr 04/23/24 04/24/24 04/24/24 18:42 07:53 22:16 WBC 11.7 H RBC 5.52 Hgb 15.0 Hct 46.2 MCV 83.7 MCH 27.2 MCHC 32.5 RDW 12.1 Plt Count 223 MPV 9.9 Absolute Nucleated RBC 0.000 Nucleated RBC % (auto) 0.0 Sodium 142 137 Potassium 4.2 4.1 Chloride 109 H 107 Carbon Dioxide 24 19 L Anion Gap 13 15 BUN 15 20 H Creatinine 0.82 0.83 Estim Creat Clear Calc 206.9 204.4 Estimated GFR > 60 > 60 Random Glucose 85 118 H Calcium 9.8 9.8 Total Bilirubin 0.5 AST 34 ALT 46 H Alkaline Phosphatase 101 Total Protein 7.8 Albumin 4.6 Triglycerides 73 Cholesterol 136 LDL Cholesterol, Calc 81 HDL Cholesterol 41 Stl C. cayetanensis PCR Stool Rotavirus A PCR Stl Adenov F 40/41 PCR Stool Astrovirus (PCR) Stool Campylobacter PCR Stool Cryptosporidium PCR Stl Sh Tox Pr E STEC PCR Stool E coli O157 PCR Stl Enterotoxigenic E PCR Stool EPEC (PCR) Stool EAEC (PCR) Stl E. histolytica PCR Stool Giardia Lamblia PCR Stl P. shigelloides PCR Stool Salmonella PCR Stool Sapovirus (PCR) Stl Shigella/EIEC PCR St Y.enterocolitica PCR Stool Vibrio (PCR) Stl Vibrio cholerae PCR Stl Norovirus GI/GII PCR C. difficile Tox B Gene Influenza Type A (PCR) Influenza Type B (PCR) RSV RNA Qual (PCR) SARS-CoV-2 RNA (RT-PCR) 04/24/24 04/24/24 04/25/24 22:17 22:20 07:38 WBC 11.0 H RBC 5.40 Hgb 14.5 Hct 45.1 MCV 83.5 MCH 26.9 L MCHC 32.2 RDW 12.2 Plt Count 231 MPV 10.3 Absolute Nucleated RBC 0.000 Nucleated RBC % (auto) 0.0 Sodium 134 L Potassium 3.7 Chloride 104 Carbon Dioxide 19 L Anion Gap 15 BUN 18 H Creatinine 0.78 Estim Creat Clear Calc 217.5 Estimated GFR > 60 Random Glucose 121 H Calcium 9.3 Total Bilirubin AST ALT Alkaline Phosphatase Total Protein Albumin Triglycerides Cholesterol LDL Cholesterol, Calc HDL Cholesterol Stl C. cayetanensis PCR Not Detected Stool Rotavirus A PCR Not Detected Stl Adenov F 40/41 PCR Not Detected Stool Astrovirus (PCR) Not Detected Stool Campylobacter PCR Not Detected Stool Cryptosporidium PCR Not Detected Stl Sh Tox Pr E STEC PCR Not Detected Stool E coli O157 PCR Not applicable Stl Enterotoxigenic E PCR Not Detected Stool EPEC (PCR) Not Detected Stool EAEC (PCR) Not Detected Stl E. histolytica PCR Not Detected Stool Giardia Lamblia PCR Not Detected Stl P. shigelloides PCR Not Detected Stool Salmonella PCR Not Detected Stool Sapovirus (PCR) Not Detected Stl Shigella/EIEC PCR Not Detected St Y.enterocolitica PCR Not Detected Stool Vibrio (PCR) Not Detected Stl Vibrio cholerae PCR Not Detected Stl Norovirus GI/GII PCR Detected A C. difficile Tox B Gene NEGATIVE Influenza Type A (PCR) NEGATIVE Influenza Type B (PCR) NEGATIVE RSV RNA Qual (PCR) NEGATIVE SARS-CoV-2 RNA (RT-PCR) NEGATIVE Medications Medications Current Medications Acetaminophen (Acetaminophen 325 Mg Tablet) 650 mg PO Q6H PRN PRN Reason: Headache/Pain, Scale 1-10 Last Admin: 04/25/24 04:31 Dose: 650 mg Al Hydroxide/Mg Hydroxide (Magnesium Hydrox/Alum Hydrox 30 Ml Oral.Susp) 30 ml PO Q6H PRN PRN Reason: Heartburn/Nausea Hydroxyzine HCl (Hydroxyzine Hcl 25 Mg Tablet) 25 mg PO Q6H PRN PRN Reason: mild anxiety Last Admin: 04/25/24 00:13 Dose: 25 mg Loperamide HCl (Loperamide Hcl 2 Mg Capsule) 2 mg PO Q4H PRN PRN Reason: Diarrhea Last Admin: 04/25/24 04:32 Dose: 2 mg Lorazepam (Lorazepam 1 Mg Tablet) 1 mg PO Q4H PRN PRN Reason: Breakthrough alcohol withdrawa Stop: 04/28/24 16:54 Last Admin: 04/25/24 04:32 Dose: 1 mg Magnesium Hydroxide (Milk Of Magnesia 30 Ml Oral.Susp) 30 ml PO DAILY PRN PRN Reason: Constipation Nicotine Polacrilex (Nicotine Polacrilex 2 Mg Gum) 4 mg BUCCAL Q2H PRN PRN Reason: Nicotine Cravings Ondansetron HCl (Ondansetron Odt 4 Mg Tab.Rapdis) 4 mg TRANSLINGU Q6H PRN PRN Reason: Nausea and Vomiting Last Admin: 04/25/24 00:41 Dose: 4 mg Sodium Chloride (0.9 % Sodium Chloride Flush 3 Ml Syringe) 3 ml IVFLUSH QSHIFT ROME Trazodone HCl (Trazodone Hcl 100 Mg Tablet) 100 mg PO BEDTIME MRX1 PRN PRN Reason: Insomnia Allergies Allergies Allergy/AdvReac Type Severity Reaction Status Date / Time Penicillins Allergy Nausea and Verified 04/23/24 15:18 Vomiting Assessment & Plan Assessment & Plan (1) Depressive disorder, not elsewhere classified: Status: Acute Code(s): F32.89 - Other specified depressive episodes (2) Asperger disorder: Status: Acute Code(s): F84.5 - Asperger's syndrome (3) Alcohol use disorder: Status: Acute Code(s): F10.90 - Alcohol use, unspecified, uncomplicated (4) Cannabis use disorder: Status: Acute Code(s): F12.90 - Cannabis use, unspecified, uncomplicated Plan Plan 24 yo male transferred from [facility] with increased depression and SI with thoughts of ODing on medications. PLAN: - Admit to inpatient psychiatry - CV - Collateral information from family and providers. - Milieu treatment and group therapy. - Medications: Start Lexapro 10 mg daily. - Social work evaluation. - Disposition planning. 04/25: Norovirus. N/V/D. Will hold off on SSRI until better. Reason for continued inpatient stay Substantial Risk for: harm to self, rapid decompensation and med/psych decompensation Time Spent With Patient Time: Total time managing care of this patient today ____ minutes.
--- NOTE | 2024-04-26 01:12 | PM.EVENT ---
Event Note Date of Service: 04/26/24 Event Note: Reviewed pt's AM labs, which did not show much improvement of bicarb, and mild hyponatremia after receiving 1L LR last early this morning. pt has been tolerating food throughout the day and has been hydrating well today. diarrhea has slowed down and has not needed anti-emetics. Pt is currently sleeping. update given by nursing staff. will allow pt to rest and recheck CBC and BMP in AM. Time Spent With Patient Time: Total time managing care of this patient today ____ minutes.
[2024-04-26] MEDS: LORazepam 1 MG TABLET PO (03:47)
[2024-04-26 07:53] VITALS: BP 134/90; RESP 16; TEMP 36.3; O2SAT 96
[2024-04-26] MEDS: Loperamide HCl 2 MG CAPSULE PO (10:02)
[2024-04-26 10:32] LABS: Hematocrit 45.6 % (42.0-52.0); Hemoglobin 14.3 g/dl (14.0-18.0); Mean Corpuscular HGB Conc 31.4 g/dl (31.0-36.0); Mean Corpuscular Hemoglobin 26.5 pg (27.0-33.0); Mean Corpuscular Volume 84.6 fL (80.0-98.0); Mean Platelet Volume 10.6 fL (9.4-12.4); Platelet Count 215 X10*3/uL (160-400); Red Blood Count 5.39 X10*6/uL (4.60-5.80); Red Cell Distribution Width 11.9 % (11.0-16.0); White Blood Count 7.3 X10*3/uL (4.8-10.8)
[2024-04-26 10:51] LABS: Anion Gap 14 (12-20); Blood Urea Nitrogen 10 mg/dL (9-16); Calcium 9.4 mg/dL (8.4-10.2); Carbon Dioxide 22 mmol/L (22-29); Chloride 105 mmol/L (96-108); Creatinine Clr Calc Pharmacy 212.1; Estimated Glomerular Filt Rate > 60; Glucose Random 95 mg/dL (60-115); Potassium 3.2 mmol/L (3.3-5.1); Sodium 138 mmol/L (135-145)
--- NOTE | 2024-04-26 16:06 | P.DS_ITS ---
DS: Providers Provider Date of Service: 04/26/24 Date of admission: 04/23/24 14:19 Date of discharge: 04/27/24 Primary care physician: Unknown Physician Consults: 04/23/24 15:19 Consult to Hospitalist Routine Comment: Consulting Provider: [facility] Hospitalists Reason For Exam: new admit, H&P 04/23/24 16:16 Addiction Medicine Routine Consulting Provider: Addiction Covering Reason for consultation: alcohol use disorder Has provider been notified: Yes DS: Diagnosis Discharge Diagnosis (1) Depressive disorder, not elsewhere classified: Status: Acute (2) Asperger disorder: Status: Acute (3) Alcohol use disorder: Status: Acute (4) Cannabis use disorder: Status: Acute DS: Medications Discharge Medications Home Medications: Home Medications ?Medication ?Instructions ?Recorded ?Confirmed No Known Home Meds 04/23/24 04/23/24 Mental Status Exam Mental Status Exam Narrative: General appearance: casually appropriate dress. Obese Unkempt.? Eye contact: WNL. Musculoskeletal: No abnormal involuntary movements like tremors, EPS or dyskinesia. No psychomotor agitation or retardation.?? Speech:? Fluent, with normal rate, tone and volume. Language: No receptive or expressive language impairment? Mood: better than before Affect: constricted range Thought process/associations: Linear with no flight of ideas or loose associations.?? Thought content:?No delusions or paranoia.?? Hallucinations: No auditory, visual or other hallucinations. Suicidality/self-destructive behavior: none at this time, future oriented, hopeful.? ? Homicidally/violence: none.? Reliability: fair.? ? Judgment: fair.? ? Insight: fair Cognition: Alert and oriented to time, place and person. Attention, concentration and fund of knowledge are normal.? Impulse control and emotional regulation: preserved. Intelligence estimate: average.? Data Data Completed and Pending Completed studies during hospitalization [Text1]: 04/23/24 04/24/24 04/24/24 18:42 07:53 22:16 WBC 11.7 H RBC 5.52 Hgb 15.0 Hct 46.2 MCV 83.7 MCH 27.2 MCHC 32.5 RDW 12.1 Plt Count 223 MPV 9.9 Absolute Nucleated RBC 0.000 Nucleated RBC % (auto) 0.0 Sodium 142 137 Potassium 4.2 4.1 Chloride 109 H 107 Carbon Dioxide 24 19 L Anion Gap 13 15 BUN 15 20 H Creatinine 0.82 0.83 Estim Creat Clear Calc 206.9 204.4 Estimated GFR > 60 > 60 Random Glucose 85 118 H Calcium 9.8 9.8 Total Bilirubin 0.5 AST 34 ALT 46 H Alkaline Phosphatase 101 Total Protein 7.8 Albumin 4.6 Triglycerides 73 Cholesterol 136 LDL Cholesterol, Calc 81 HDL Cholesterol 41 Stl C. cayetanensis PCR Stool Rotavirus A PCR Stl Adenov F 40/ PCR Stool Astrovirus (PCR) Stool Campylobacter PCR Stool Cryptosporidium PCR Stl Sh Tox Pr E STEC PCR Stool E coli O157 PCR Stl Enterotoxigenic E PCR Stool EPEC (PCR) Stool EAEC (PCR) Stl E. histolytica PCR Stool Giardia Lamblia PCR Stl P. shigelloides PCR Stool Salmonella PCR Stool Sapovirus (PCR) Stl Shigella/EIEC PCR St Y.enterocolitica PCR Stool Vibrio (PCR) Stl Vibrio cholerae PCR Stl Norovirus GI/GII PCR C. difficile Tox B Gene Influenza Type A (PCR) Influenza Type B (PCR) RSV RNA Qual (PCR) SARS-CoV-2 RNA (RT-PCR) 04/24/24 04/24/24 04/25/24 22:17 22:20 07:38 WBC 11.0 H RBC 5.40 Hgb 14.5 Hct 45.1 MCV 83.5 MCH 26.9 L MCHC 32.2 RDW 12.2 Plt Count 231 MPV 10.3 Absolute Nucleated RBC 0.000 Nucleated RBC % (auto) 0.0 Sodium 134 L Potassium 3.7 Chloride 104 Carbon Dioxide 19 L Anion Gap 15 BUN 18 H Creatinine 0.78 Estim Creat Clear Calc 217.5 Estimated GFR > 60 Random Glucose 121 H Calcium 9.3 Total Bilirubin AST ALT Alkaline Phosphatase Total Protein Albumin Triglycerides Cholesterol LDL Cholesterol, Calc HDL Cholesterol Stl C. cayetanensis PCR Not Detected Stool Rotavirus A PCR Not Detected Stl Adenov F 40 PCR Not Detected Stool Astrovirus (PCR) Not Detected Stool Campylobacter PCR Not Detected Stool Cryptosporidium PCR Not Detected Stl Sh Tox Pr E STEC PCR Not Detected Stool E coli O157 PCR Not applicable Stl Enterotoxigenic E PCR Not Detected Stool EPEC (PCR) Not Detected Stool EAEC (PCR) Not Detected Stl E. histolytica PCR Not Detected Stool Giardia Lamblia PCR Not Detected Stl P. shigelloides PCR Not Detected Stool Salmonella PCR Not Detected Stool Sapovirus (PCR) Not Detected Stl Shigella/EIEC PCR Not Detected St Y.enterocolitica PCR Not Detected Stool Vibrio (PCR) Not Detected Stl Vibrio cholerae PCR Not Detected Stl Norovirus GI/GII PCR Detected A C. difficile Tox B Gene NEGATIVE Influenza Type A (PCR) NEGATIVE Influenza Type B (PCR) NEGATIVE RSV RNA Qual (PCR) NEGATIVE SARS-CoV-2 RNA (RT-PCR) NEGATIVE 04/26/24 09:57 WBC 7.3 RBC 5.39 Hgb 14.3 Hct 45.6 MCV 84.6 MCH 26.5 L MCHC 31.4 RDW 11.9 Plt Count 215 MPV 10.6 Absolute Nucleated RBC 0.000 Nucleated RBC % (auto) 0.0 Sodium 138 Potassium 3.2 L Chloride 105 Carbon Dioxide 22 Anion Gap 14 BUN 10 Creatinine 0.80 Estim Creat Clear Calc 212.1 Estimated GFR > 60 Random Glucose 95 Calcium 9.4 Total Bilirubin AST ALT Alkaline Phosphatase Total Protein Albumin Triglycerides Cholesterol LDL Cholesterol, Calc HDL Cholesterol Stl C. cayetanensis PCR Stool Rotavirus A PCR Stl Adenov F 40/41 PCR Stool Astrovirus (PCR) Stool Campylobacter PCR Stool Cryptosporidium PCR Stl Sh Tox Pr E STEC PCR Stool E coli O157 PCR Stl Enterotoxigenic E PCR Stool EPEC (PCR) Stool EAEC (PCR) Stl E. histolytica PCR Stool Giardia Lamblia PCR Stl P. shigelloides PCR Stool Salmonella PCR Stool Sapovirus (PCR) Stl Shigella/EIEC PCR St Y.enterocolitica PCR Stool Vibrio (PCR) Stl Vibrio cholerae PCR Stl Norovirus GI/GII PCR C. difficile Tox B Gene Influenza Type A (PCR) Influenza Type B (PCR) RSV RNA Qual (PCR) SARS-CoV-2 RNA (RT-PCR) 04/24/24 22:16 Blood - Venous Blood Culture - Preliminary No growth after 24 hours. 04/24/24 22:16 Blood - Venous Blood Culture - Preliminary No growth after 24 hours. DS: Summary Hospital Course Hospital Course: per 04/24 admission note: HPI Narrative: 24 yo young man, lives in [facility]. He lives with his parents and brother. He works at a restaurant. Patient with a reported diagnosis of ASD/Asperger's disorder. He was transferred from [facility] in [place] due to SI. Patient reports he has been increasingly depressed over the last 8 or so months after the break up with his ex-girlfriend. He reports a 2.5 year relationship with her. She lived in [place] and their relationship was remote. Patient reports increased depression and increased alcohol use. He reports drinking 5-6 nips everyday (BAL at [facility] <10) and using edibles because of decreased appetite. He reports a weight loss of 40 lbs (Patient reports being around 400 lbs ad now being 360 lbs). Decreased motivation. 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 Helplessness and hopelessness. He reports he sent a message to a friend saying grazynae and the friend alerted the police who came to his house. He was considering OD on Ibuprofen. He told his mother and he says he was challenging her to stop him if she could (mom's mobility is limited due to her illness.) In addition to the break up patient reports stressors including his mother having Lupus, being on dialysis and having cancer. He says they were told she has 3 months to live several months ago. He has a strained relationship with his father. He also uses excessive amounts of edible MJ to help his anxiety and to help his appetite. He denies withdrawals from ETOH Denies SI now. Denies panic Denies hallucinations. Past Psychiatric History: Inpatient hospitalization age 10 in 4th grade. Evasive about details. Medical Evaluation Reviewed: Yes [facility] Family History: Says his father may be depressed. (mentioned to crisis team in [place] father may have bipolar) Social History: Lives with his family in [place]. 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 Single. No children. Grew up in [place]. Attended a special education middle and high school program due to learning difficulties. Substance History: Alcohol and MJ Precis: 24 yo male transferred from [facility] with increased depression and SI with thoughts of ODing on medications. 04/24: Start Lexapro 10 mg daily. Social work evaluation. Disposition planning. 04/25: Norovirus. N/V/D. Will hold off on SSRI until better. 04/26: diarrhea, fever overnight. SI resolved. planning for discharge tomorrow. 04/27: stable. meds reviewed, reconciled. discharged as per plan. Time Spent with Patient Time attestation: Total time managing care of this patient today _35___ minutes. Discharge Plan Discharge Anticipated Discharge Date/Time: 04/27/24 12:00 Patient Disposition: Home, Self-Care Discharge Diagnosis: Depressive Disorder NOS Asperger's Disorder Alcohol Use Disorder Cannabis Use Referrals: Therapy & Psychiatry [Other] - 1 Week (*Please follow up with the agency above if you are interested in outpatient mental health treatment. ) Therapy & Psychiatry [Other] - 1 Week (*Please follow up with the agency above in order to engage in outpatient mental health treatment. They are accepting new patients at this time. ) Jose Alejandro Lea MD [Other] - 05/11/24 1:00 pm (04-27-24 Your follow up visit with your primary care physician has been scheduled for 05-11-24 @ 1pm) Discharge Medications: No Action No Known Home Meds Discharge Orders: Discharge Order (Routine); Ordered 04/27/24 Ordered By: Teddy Hdez Diet: Advance to usual diet Activity on Discharge: As tolerated Stand Alone Forms: Patient Portal Discharge page, Community Support Print Language: Jordanian Care Plan Goals: remain safe, stable, and sober in the outpatient treatment setting Health Concerns: morbid obesity norovirus infection Plan of Treatment: take medications as prescribed, establish mental health care in your area Assessment: not at imminent risk of harm to self or others Discharge Date/Time: 04/27/24 16:00
[2024-04-26 20:00] VITALS: BP 132/88; PULSE 94; RESP 16; TEMP 36.6; O2SAT 98
[2024-04-26] MEDS: traZODone HCL 100 MG TABLET PO (23:16)
[2024-04-26] MEDS: hydrOXYzine HCL 25 MG TABLET PO (23:17)
[2024-04-27 07:47] VITALS: BP 140/64; PULSE 89; RESP 16; TEMP 36.3; O2SAT 97
== END 2024-04-27 16:00 | disposition home or self-care (01) | DRG 753 ==
PROVIDERS: Internal Medicine; Physician Assistant; Registered Nurse; Admitting Provider Psychiatry & Neurology Psychiatry; Visit Provider Psychiatry & Neurology Psychiatry
DX: F32.89 Other specified depressive episodes (principal); A08.11 Acute gastroenteropathy due to Norwalk agent; F84.5 Asperger's syndrome; F10.90 Alcohol use, unspecified, uncomplicated; E87.1 Hypo-osmolality and hyponatremia; F12.90 Cannabis use, unspecified, uncomplicated; Z20.822 Contact with and (suspected) exposure to COVID-19
CPT/HCPCS: 0241U; 36415; 80048; 80053; 80061; 85027; 87040; 87493; 87507; 93005; J7120

== ENCOUNTER 2024-04-23 14:19 | Outpatient (BNV) | payer BC, SELFPAY | END 2024-04-24 16:24 | PROVIDERS: Admitting Provider Psychiatry & Neurology Psychiatry; Visit Provider Internal Medicine | DX: R07.89 Other chest pain (principal) | CPT/HCPCS: 93010 ==

== ENCOUNTER → 2024-04-23 14:19 | Outpatient (BNV) | payer BC, SELFPAY | PROVIDERS: Admitting Provider Psychiatry & Neurology Psychiatry; Visit Provider Internal Medicine | DX: R19.7 Diarrhea, unspecified (principal); R50.9 Fever, unspecified | CPT/HCPCS: 99222; 99499 ==

== ENCOUNTER → 2024-04-23 14:19 | Outpatient (BNV) | payer BC, SELFPAY | PROVIDERS: Admitting Provider Psychiatry & Neurology Psychiatry; Visit Provider Psychiatry & Neurology Psychiatry | DX: F32.89 Other specified depressive episodes (principal); F84.5 Asperger's syndrome; F10.90 Alcohol use, unspecified, uncomplicated; F12.90 Cannabis use, unspecified, uncomplicated | CPT/HCPCS: 99223; 99231; 99232; 99239 ==